=== PATIENT | female | born 1995 | race Caucasian/White ===

== ENCOUNTER 2023-12-12 15:29 | Emergency (ER) | payer SELFPAY ==
[2023-12-12 15:33] VITALS: BP 138/97
--- NOTE | 2023-12-12 15:33 | ED.GENMED ---
ED Provider Triage
<Garrte Taylor PA-C - Last Filed: 12/13/23 10:10>
-
Patient seen by provider in Triage?: Seen in Triage
Attestation: A medical screening examination has been initiated by a qualified medical provider. Based on the assessment performed at this time, it has been determined that an emergent medical condition may exist and the patient has been informed
that further medical evaluation and possible additional diagnostic testing may be needed.
HPI: 28-year-old female presents to the emergency department for evaluation of diffuse body tingling and 'delayed sensation' ongoing for the duration of the day. She also ports dizziness and heart palpitations. She was seen in urgent care prior to
being referred to the emergency department for further workup. Denies any new prescription drugs. No recent fevers. States 'I feel like I am on a drug but have not taken anything'
GENERAL: Alert , in no apparent distress
EYE: No visual abnormalities.
NECK: Trachea midline
ENT: No visible abnormalities.
LUNGS: No acute respiratory distress
NEUROLOGICAL: Alert and oriented
SKIN: Skin intact. No visible changes.
MUSCULOSKELETAL: Moving extremities normally
PSYCH: Normal and appropriate interaction.
A/P: Diffuse body paresthesias/palpitations, will check CBC, CMP, and TSH as well as EKG
This is a medical evaluation conducted in person to initiate diagnostic evaluation and provide initial therapeutics. Please see further documentation by the treating clinician.
History of Present Illness
<Garret Taylor PA-C - Last Filed: 12/13/23 10:10>
General
Chief Complaint: Numbness
Time Seen by Provider: 12/12/23 16:17
<Leon Singh DO - Last Filed: 12/12/23 17:34>
General
Source: patient
Exam Limitations: none
History of Present Illness
History of Present Illness:
See MDM
Past History
<Leon Singh DO - Last Filed: 12/12/23 17:34>
Past History
ED Past Medical History: None
ED Past Surgical History: None
Social History
Tobacco: Non-smoker
Alcohol: None
Phy Exam
<Leon Singh, DO - Last Filed: 12/12/23 17:34>
Physical Exam
Physical Exam:
See MDM
Course
<Garret Taylor PA-C - Last Filed: 12/13/23 10:10>
Orders/Labs/Results
Orders:
Orders
12/12/23 15:32
Electrocardiogram (*1) Urgent
Reason for Study: Palpitations
EKG- Treatment ONCE
Test Result ONCE
12/12/23 15:42
Complete Blood Count/No Diff Urgent
Comprehensive Metabolic Panel Urgent
HCG, Serum Qualitative Screen Urgent
TSH Urgent
Abnormal Lab Results
12/12/23
15:42
RBC 4.12 L 10^6/uL
(4.20-5.40)
Hct 35.6 L %
(37.0-47.0)
MCH 31.1 H pg
(27.0-31.0)
MPV 11.2 H fL
(7.4-10.4)
Glucose 110 H mg/dl
(70-99)
12/12/23 15:42
12/12/23 15:42
Vital Signs
Initial and Last Documented VS:
Initial Vital Signs
Temp Pulse Resp BP Pulse Ox
98.7 F 92 16 138/97 100
12/12/23 15:33 12/12/23 15:33 12/12/23 15:33 12/12/23 15:33 12/12/23 15:33
Last Documented Vital Signs
Temp Pulse Resp BP Pulse Ox
98.7 F 92 16 138/97 100
12/12/23 15:33 12/12/23 15:33 12/12/23 15:33 12/12/23 15:33 12/12/23 15:33
<Leon Singh DO - Last Filed: 12/12/23 17:34>
Orders/Labs/Results
Orders:
Orders
12/12/23 15:32
Electrocardiogram (*1) Urgent
Reason for Study: Palpitations
EKG- Treatment ONCE
Test Result ONCE
12/12/23 15:42
Complete Blood Count/No Diff Urgent
Comprehensive Metabolic Panel Urgent
HCG, Serum Qualitative Screen Urgent
TSH Urgent
Abnormal Lab Results
12/12/23
15:42
RBC 4.12 L 10^6/uL
(4.20-5.40)
Hct 35.6 L %
(37.0-47.0)
MCH 31.1 H pg
(27.0-31.0)
MPV 11.2 H fL
(7.4-10.4)
Glucose 110 H mg/dl
(70-99)
12/12/23 15:42
12/12/23 15:42
Vital Signs
Initial and Last Documented VS:
Initial Vital Signs
Temp Pulse Resp BP Pulse Ox
98.7 F 92 16 138/97 100
12/12/23 15:33 12/12/23 15:33 12/12/23 15:33 12/12/23 15:33 12/12/23 15:33
Last Documented Vital Signs
Temp Pulse Resp BP Pulse Ox
98.7 F 92 16 138/97 100
12/12/23 15:33 12/12/23 15:33 12/12/23 15:33 12/12/23 15:33 12/12/23 15:33
<Leon Singh DO - Last Filed: 12/12/23 17:34>
MDM/Problems Addressed
Differential Diagnosis Includes:
HPI and MDM Narrative:
The provider triage note was evaluated
28-year-old female presenting with multiple vague complaints. She was at work and she felt weak and fatigued and felt like there was a delayed response in her body. She is having trouble explaining exactly how she felt but described it as if she
was drugged. She went to urgent care and was sent to the emergency department for further evaluation. On my exam, patient states she started feel better. Her labs are without clinical significance and her EKG is normal sinus rhythm. She has no
focal neurodeficits. Whether or not this is possibly an anxiety or panic attack, we discussed following up with her PCP. We discussed low yield and CT head given that symptoms are improved
Physical exam
General: Well appearing and non-toxic
HEENT: protecting airway
Neck: appears supple
CV: No evidence of cyanosis. Regular rate and rhythm
Resp: No accessory muscle use
Abd: Non-distended
Extremities: No deformities
Neuro: alert. No focal neurodeficits. Sensation grossly intact to all 4 extremities
Psych: Normal affect
Skin: Intact
Problems Addressed including Acute and Chronic Conditions affecting care:
1. Discharge delayed response feeling
Acuity: acute
Prognosis: stable
Details: Blood work without clinical significance. EKG within normal limits. Patient feeling better. Discussed PCP follow-up
Differential Diagnosis (but not limited to): Hyponatremia, anxiety
Testing considered: CT head but she has no focal deficits and symptoms are improving
Drug therapy (if applicable): OTC meds, please see d/c instruction regarding Rx drugs
Amount and/or Complexity of Data Reviewed
Clinical info obtained from: Patient
External data reviewed: N/A
Labs I independently reviewed (but not limited to): Electrolytes within normal limits
Radiology: N/A
Pulse Ox: not hypoxic
EKG independently reviewed: Sinus rhythm, normal axis, no STEMI
Cut Off [place]: N/A
Critical Care: N/A
Risk of Complication:
Social Determinants of health: Good social support
Discussed with other providers: N/A
Escalation of Care includes Admit/Obs: After being observed in the Emergency Department, pt stable for discharge.
Occasional wrong word or 'sound a like' substitutions may have occurred due to the inherent limitations of voice recognition software. Read the chart carefully and recognize, using context, where substitutions have occurred.
<Garret Taylor PA-C - Last Filed: 12/13/23 10:10>
*Critical Care Note
Total Time (30-74mins, 75-104mins- exclusive of procedures): Not Applicable
ED Attending Note
<Garret Taylor PA-C - Last Filed: 12/13/23 10:10>
-
Portions of this chart may have been created with voice recognition software.� Occasional wrong word or��sound alike� substitutions may have occurred due to the inherent limitations of voice recognition software.
Discharge Plan
Departure
Patient Disposition: Home (Routine Discharge)
Date of Disposition: 12/12/23
Time of Disposition: 17:32
Patient with high blood pressure during this ER visit?: No
Discharge Problem:
Feeling abnormal
Referrals:
[facility] [Provider Group]
NONE,* [Family Provider] -
Stand Alone Forms: Return to Work
Activity Restrictions/Additional Instructions:
Please return for any worsening symptoms.
You may return at any time if you have further concerns.
Please follow up with your doctor at the first available appointment.
Thank you for choosing [facility].
Interventions
Interventions:
*Risk Screen - Suicide Last Done: 12/12/23 15:33
ED- Fall Risk Assessment Last Done: 12/12/23 17:00
*Nursing Disposition Last Done: 12/12/23 17:39
ED- Neurological Assessment Last Done: 12/12/23 17:00
Discharge Date and Time
Discharge Date/Time: 12/12/23 17:39
Print Language: POLISH
[2023-12-12 15:52] LABS: Hematocrit 35.6 % (37.0-47.0); Hemoglobin 12.8 g/dL (12.0-16.0); Mean Corpuscular Hgb 31.1 pg (27.0-31.0); Mean Corpuscular Volume 86.4 fL (81.0-99.0); Mean Platelet Volume 11.2 fL (7.4-10.4); Platelet Count 243 10^3/uL (130-400); Red Blood Cell Count 4.12 10^6/uL (4.20-5.40); Red Cell Dist. Width 11.7 % (11.5-14.5); White Blood Cell Count 9.1 10^3/uL (4.8-10.8)
[2023-12-12 16:10] LABS: HCG, Serum Qualitative Screen Negative
[2023-12-12 16:15] LABS: ALT (SGPT) 13 U/L (0-35); AST (SGOT) 18 U/L (14-36); Albumin 4.6 g/dl (3.5-5.0); Alkaline Phosphatase 64 U/L (38-126); Blood Urea Nitrogen 15 mg/dl (7-17); Calcium 9.5 mg/dl (8.4-10.2); Carbon Dioxide 27 mmol/L (22-30); Chloride 100 mmol/L (98-107); Glucose 110 mg/dl (70-99); Sodium 140 mmol/L (135-145); Total Bilirubin 0.5 mg/dl (0.2-1.3); Total Protein 7.7 g/dl (6.3-8.2); eGFR > 60.00
[2023-12-12 16:52] LABS: TSH 1.46 uIU/ml (0.47-4.68)
== END 2023-12-12 17:39 | disposition home or self-care (01) ==
LOC: EMR 15:29
PROVIDERS: Physician Assistant; EMERGENCY PHYSICIAN Student in an Organized Health Care Education/Training Program
DX: R20.2 Paresthesia of skin (principal)
CPT/HCPCS: 99283; 80053; 84443; 84703; 85027; 93005